=== PATIENT | female | born 1940 | race Caucasian/White ===

== ENCOUNTER 2019-06-16 14:42 | Emergency (ER) | payer OTHER ==
[~2019-06-16] VITALS: Ht 170.2 cm; Wt 83.5 kg
[2019-06-16] MEDS ORDERED: SIMVASTATIN80 MG PO (14:56)
[2019-06-16] MEDS ORDERED: IBU600 MG PO (14:57)
[2019-06-16] MEDS ORDERED: LISINOPRIL-HCT1 EAC2 PO (14:57)
[2019-06-16 15:25] VITALS: BP 180/90
== END 2019-06-16 15:27 | disposition home or self-care (01) ==
LOC: M.ERS 14:42
DX: S81.812A Laceration without foreign body, left lower leg, initial encounter (principal); I10 Essential (primary) hypertension; E78.00 Pure hypercholesterolemia, unspecified; Z88.0 Allergy status to penicillin; W26.8XXA Contact with other sharp object(s), not elsewhere classified, initial encounter; Y93.89 Activity, other specified; Y92.89 Other specified places as the place of occurrence of the external cause; Y99.8 Other external cause status